=== PATIENT | female | born 1940 | race Two or more races ===

== ENCOUNTER 2021-05-20 21:23 | Emergency (ER) | payer OTHER ==
[~2021-05-20] VITALS: Ht 152.4 cm; Wt 81.6 kg
--- NOTE | 2021-05-20 21:40 | NUR ---
PT PROVIDED WITH WARM BLANKETS.
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
--- NOTE | 2021-05-20 22:37 | NUR ---
xray at bedside
[2021-05-20] MEDS ORDERED: ACETAMINOPHEN ES 500 MG TABLET ONE (22:50)
[2021-05-20] MEDS ORDERED: BACI/NEOM/POLY B OINT PKT 1 UDPKT PACKET ONE (22:50)
[2021-05-20] MEDS ORDERED: TDAP [DIPH/PERTUSSIS/TET] 0.5 ML VIAL IM ONE ×2 (22:58→23:00)
[2021-05-20] MEDS ORDERED: ACETAMINOPHEN ES 500 MG TABLET PO ONE (23:00)
[2021-05-20] MEDS ORDERED: BACI/NEOM/POLY B OINT PKT 1 UDPKT PACKET TP ONE (23:00)
--- NOTE | 2021-05-21 02:27 | NUR ---
Patient discharged to home in stable condition. Written and verbal after care instructions given. Patient verbalizes understanding of instruction. Pt ambulatory with a steady gait
[2021-05-21 03:58] VITALS: BP 145/77
== END 2021-05-21 02:27 | disposition home or self-care (01) ==
LOC: ER 21:26
DX: S63.592A Other specified sprain of left wrist, initial encounter (principal); S00.531A Contusion of lip, initial encounter; S80.12XA Contusion of left lower leg, initial encounter; I10 Essential (primary) hypertension; E78.5 Hyperlipidemia, unspecified; M19.90 Unspecified osteoarthritis, unspecified site; Z88.0 Allergy status to penicillin; Z60.2 Problems related to living alone; V49.49XA Driver injured in collision with other motor vehicles in traffic accident, initial encounter; Y93.89 Activity, other specified; Y92.413 State road as the place of occurrence of the external cause; Y99.8 Other external cause status
CPT/HCPCS: 73060-TC; 73090-TC; 73130-TC; 73564-TC; 73610-TC; 90715